=== PATIENT | male | born 1960 | race Asian ===

== ENCOUNTER 2024-05-26 20:36 | Emergency (ER) | payer MEDICARE ==
[2024-05-26 21:06] VITALS: BP 157/84; PULSE 100; RESP 17; TEMP 100; BMI 32.8
[2024-05-26] MEDS: SODIUM CHLORIDE 1,000 ML IV STA (21:22)
[2024-05-26] MEDS ORDERED: ACETAMINOPHEN INJECTION 100 ML ONE (21:28)
[2024-05-26] MEDS: ACETAMINOPHEN 1000 MG/100 ML BAG IVPB ONE (21:30)
[2024-05-26 21:31] LABS: HEMOGLOBIN 13.5 G/dL (11.7-16.9); MCH 29.4 pg (25.7-33.7); MCHC 33.7 g/dl (32.0-35.9); MEAN CELL VOLUME 87.2 fl (80-96); MEAN PLT VOLUME 9.8 fl (7.5-11.1); PLATELET COUNT 201.3 10^3/uL (134-434); RBC 4.59 10^6/uL (4.00-5.60); RDW 14.4 % (11.9-15.9); WHITE BLOOD COUNT 13.3 10^3/uL (4.0-10.8)
[2024-05-26 21:42] LABS: INR 1.1 (0.83-1.09); PROTHROMBIN TIME (PATIENT) 12.5 SEC (9.7-13.0)
[2024-05-26 22:05] LABS: ALBUMIN 4.3 g/dl (3.4-5.0); CALCIUM 9.4 mg/dl (8.5-10.1); CREATININE 0.8 mg/dl (0.6-1.3); POTASSIUM 4.2 mmol/L (3.5-5.1); TOT PROT 7.8 g/dl (6.4-8.2)
[2024-05-27 01:53] LABS: HIV INTERPRETATION NEGATIVE (NEGATIVE)
== END 2024-05-26 23:42 | disposition home or self-care (01) ==
LOC: FER 20:36
PROC: 3E033NZ Introduction of Analgesics, Hypnotics, Sedatives into Peripheral Vein, Percutaneous Approach (ICD-10-PCS; principal; 2024-05-26)
PROC: 3E0337Z Introduction of Electrolytic and Water Balance Substance into Peripheral Vein, Percutaneous Approach (ICD-10-PCS; 2024-05-26)
DX: J02.0 Streptococcal pharyngitis (principal); R10.31 Right lower quadrant pain; R09.81 Nasal congestion; R50.9 Fever, unspecified; Z20.822 Contact with and (suspected) exposure to COVID-19
CPT/HCPCS: 0241U-QW; 36415; 74177-TC; 80053; 81003; 85027; 85610; 86803; 87389; 96361; 96374; 99285-25; J0131; Q9967